=== PATIENT | male | born 1975 | race Asian ===

== ENCOUNTER 2020-01-25 14:18 | Emergency (ER) | payer OTHER ==
[~2020-01-25] VITALS: Ht 167.6 cm; Wt 84.0 kg
[2020-01-25] MEDS ORDERED: IV NORMAL SALINE 1,000ML 1,000 ML IV ONE (14:45)
[2020-01-25] MEDS ORDERED: CONTRAST GIVEN. MC PRN (15:00)
[2020-01-25] MEDS ORDERED: IOHEXOL 300 MG/ML 75 ML VIAL. IV ONE (15:00)
--- NOTE | 2020-01-25 15:09 | PHYS DOC ---
Past History Past Medical History: No Pertinent History (MORENO MO APRN) Past Surgical History: Other Additional Past Surgical Histo: left knee scope (MORENO MO APRN) Smoking: Non-smoker Alcohol Use: Rarely Drug Use: None (MORENO MO APRN) General Adult EDM: Chief Complaint: OTHER COMPLAINTS HPI: HPI: Patient is a 44-year-old male who presents to the emergency department with complaints of rectal pain and intermittent fevers for the last 4 days. Patient reports that he noticed the rectal pain after having a hard bowel movement 4 days ago. Patient denies any rectal bleeding. He states he is tried applying Preparation H with no reduction in his pain. Patient reports that this morning his temperature was 101. He denies any headache, sore throat, ear pain, chest pain, shortness of breath, cough, body aches, nausea, vomiting, diarrhea, or abdominal pain. The patient denies any pain with urination, abnormal penile discharge, or difficulty voiding. Patient reports that this morning he noticed that his urine was darker than normal. He currently rates his discomfort a 5 out of 10 on pain scale, he denies any alleviating factors, the pain is worse with defecation. Patient reports that he has not had a bowel movement yet today. (MORENO MO APRN) Review of Systems: Review of Systems: Complete ROS is negative unless otherwise noted in HPI. (MORENO MO APRN) Current Medications: Current Meds: Current Medications Medications (Trade) Dose Ordered Sig/Azalia Start Time Stop Time Status Last Admin Dose Admin Info (Do NOT chart on this entry -- for MONITORING) 1 each PRN DAILY PRN 01/25/20 15:00 01/27/20 14:59 Iohexol (Omnipaque 300 Mg/ml) 75 ml 1X ONCE 01/25/20 15:00 01/25/20 15:01 DC Sodium Chloride 1,000 ml @ 1,000 mls/hr 1X ONCE 01/25/20 14:45 01/25/20 15:44 (MORENO MO APRN) Allergies: Allergies: Allergies Coded Allergies Type Severity Reaction Last Updated Verified No Known Drug Allergies 01/25/20 No (MORENO MO APRN) Physical Exam: PE: See Above Constitutional: Well developed, well nourished, no acute distress, non-toxic appearance. [] HENT: Normocephalic, atraumatic, bilateral external ears normal, oropharynx moist, no oral exudates, nose normal. [] Eyes: PERRLA, EOMI, conjunctiva normal, no discharge. [] Neck: Normal range of motion, no stridor. [] Cardiovascular:Heart rate regular rhythm, no murmur [] Lungs & Thorax: Bilateral breath sounds clear to auscultation, respirations even and unlabored, no retractions, no respiratory distress [] Abdomen: Bowel sounds normal, soft, no tenderness, no masses, no pulsatile mass es. Rectal Exam: Normal tone, No mass, Positive control Stool: Firm, Brown Guaiac: Negative Skin: Warm, dry, no erythema, no rash. [] Back: No tenderness, no CVA tenderness. [] Extremities: No cyanosis, no clubbing, ROM intact, no edema. [] Neurologic: Alert and oriented X 3, normal motor function, normal sensory function, no focal deficits noted. [] Psychologic: Affect normal, judgement normal, mood normal. [] (MORENO MO APRN) Current Patient Data: Vital Signs: Vital Signs Date Time Temp Pulse Resp B/P (MAP) Pulse Ox O2 Delivery O2 Flow Rate FiO2 01/25/20 14:22 98.8 75 16 125/65 (85) 99 Room Air (MORENO MO APRN) EKG: EKG: [] (MORENO MO APRN) Radiology/Procedures: Radiology/Procedures: PROCEDURE: CT ABD PELV W/ IV CONTRST ONLY EXAM: Abdomen and pelvis CT with intravenous contrast. HISTORY: Rectal pain and fever. TECHNIQUE: Computed tomographic images of the abdomen and pelvis were obtained following the administration of intravenous contrast. Multiplanar reformatting was performed. *One or more of the following individualized dose reduction techniques were utilized for this examination: 1. Automated exposure control. 2. Adjustment of the mA and/or kV according to patient size. 3. Use of iterative reconstruction technique. COMPARISON: None. FINDINGS: Evaluation of the lower thorax is unremarkable. No hepatic lesion is seen. The gallbladder, pancreas, spleen, adrenal glands and left kidney are unremarkable. There are tiny hypodense lesions within both kidneys measuring 10 mm within the posterior lower mid zone of the right kidney and 3 mm within the inferior pole of the left kidney. These are likely cysts. There is no appendicitis. There is no bowel obstruction or abnormal bowel wall thickening. The urinary bladder and prostate are unremarkable. There is no lymphadenopathy. The aorta is normal in caliber. There is a complex peripherally enhancing fluid collection within the right perianal soft tissues measuring approximately 4.7 x 1.2 x 3.8 cm in maximum dimension, consistent with an abscess. This does not appear to extend cephalad beyond the levator ani. There is surrounding soft tissue fatty stranding involving the right gluteus subcutaneous fat. IMPRESSION: 1. Right perianal abscess measure approximately 4.7 x 3.8 x 1.2 cm. 2. Tiny suspected renal cysts. Follow-up is not routinely recommended for simple renal cysts.[] (MORENO MO APRN) Heart Score: Risk Factors: Risk Factors: DM, Current or recent (<one month) smoker, HTN, HLP, family history of CAD, obesity. Risk Scores: Score 0 - 3: 2.5% MACE over next 6 weeks - Discharge Home Score 4 - 6: 20.3% MACE over next 6 weeks - Admit for Clinical Observation Score 7 - 10: 72.7% MACE over next 6 weeks - Early Invasive Strategies (MORENO MO APRN) Course & Med Decision Making: Course & Med Decision Making Pertinent Labs and Imaging studies reviewed. (See chart for details) 1604- Spoke with Dr. Guido about CT results. will call the hospitalist at [facility] to admit patient there. Will start antibiotics and sitz baths as requested. Will notify pt that surgery will likely be tomorrow morning. 1635- Spoke with Dr. Grace at [facility], will transfer pt to [facility] for admission for perianal abscess. (MORENO MO APRN) Course & Med Decision Making I have participated in the care of this patient and I have reviewed and agree with all pertinent clinical information above including history, exam, and recommendations. (KINJAL KURTZ MD) Dragon Disclaimer: Dragon Disclaimer: This electronic medical record was generated, in whole or in part, using a voice recognition dictation system. (BOGUSLAW,MORENO D RING ATTACHER) Departure Departure: Impression: Primary Impression: Perianal abscess Disposition: 05 DC/TRF OTHER TYPE INSTITUTI ([facility], Dr. Grace) Condition: STABLE Referrals: SUJATHA FOURNIER (PCP) MORENO MO APRN Jan 25, 2020 15:09 KINJAL KURTZ MD Jan 25, 2020 17:07
[2020-01-25 15:13] LABS: FECAL OB PT NEGATIVE (NEG)
[2020-01-25 15:33] LABS: BASO % 0 % (0-3); EOS % 0 % (0-3); HEMATOCRIT 39.3 % (39.0-53.0); HEMOGLOBIN 13.1 g/dL (13.0-17.5); LYMPH # 1.3 x10^3/uL (1.0-4.8); LYMPH % 11 % (24-48); MEAN CORPUSCULAR HEMOGLOBIN 33 pg (25-35); MEAN CORPUSCULAR HGB CONC 33 g/dL (31-37); MEAN CORPUSCULAR VOLUME 98 fL (79-100); MONO # 1.5 x10^3/uL (0.0-1.1); MONO % 13 % (0-9); NEUT # 8.9 x10^3uL (1.8-7.7); NEUT % 76 % (31-73); PLATELET COUNT 230 x10^3/uL (140-400); RED BLOOD COUNT 3.99 x10^6/uL (4.30-5.70); RED CELL DISTRIBUTION WIDTH 12.1 % (11.5-14.5); WHITE BLOOD COUNT 11.6 x10^3/uL (4.0-11.0)
[2020-01-25 15:37] LABS: GFR 80.4; POTASSIUM 3.9 mmol/L (3.5-5.1)
[2020-01-25 15:43] LABS: ALBUMIN 3.7 g/dL (3.4-5.0); TOTAL BILIRUBIN 1.4 mg/dL (0.2-1.0); TOTAL PROTEIN 7.4 g/dL (6.4-8.2)
--- NOTE | 2020-01-25 15:46 | RAD ---
EXAM: Abdomen and pelvis CT with intravenous contrast. HISTORY: Rectal pain and fever. TECHNIQUE: Computed tomographic images of the abdomen and pelvis were obtained following the administration of intravenous contrast. Multiplanar reformatting was performed. *One or more of the following individualized dose reduction techniques were utilized for this examination: 1. Automated exposure control. 2. Adjustment of the mA and/or kV according to patient size. 3. Use of iterative reconstruction technique. COMPARISON: None. FINDINGS: Evaluation of the lower thorax is unremarkable. No hepatic lesion is seen. The gallbladder, pancreas, spleen, adrenal glands and left kidney are unremarkable. There are tiny hypodense lesions within both kidneys measuring 10 mm within the posterior lower mid zone of the right kidney and 3 mm within the inferior pole of the left kidney. These are likely cysts. There is no appendicitis. There is no bowel obstruction or abnormal bowel wall thickening. The urinary bladder and prostate are unremarkable. There is no lymphadenopathy. The aorta is normal in caliber. There is a complex peripherally enhancing fluid collection within the right perianal soft tissues measuring approximately 4.7 x 1.2 x 3.8 cm in maximum dimension, consistent with an abscess. This does not appear to extend cephalad beyond the levator ani. There is surrounding soft tissue fatty stranding involving the right gluteus subcutaneous fat. IMPRESSION: 1. Right perianal abscess measure approximately 4.7 x 3.8 x 1.2 cm. 2. Tiny suspected renal cysts. Follow-up is not routinely recommended for simple renal cysts. Electronically signed by: Isabel Lugo MD (01/25/2020 3:43 PM) [id number]
[2020-01-25] MEDS ORDERED: PIPERACILLIN/TAZOBACTAM 3.375 GM in IV NORMAL SALINE 50ML 50 ML IV ONE (16:15)
[2020-01-25 16:21] LABS: CLARITY,URINE CLEAR; COLOR,URINE AMBER
[2020-01-25 16:22] LABS: BILIRUBIN,URINE NEG (NEG); GLUCOSE,URINE NEG (NEG); UROBILINOGEN,URINE 0.2 mg/dL (0.2 mg/dL)
[2020-01-25 16:23] LABS: NITRITE,URINE NEG (NEG)
[2020-01-25 16:25] LABS: BACTERIA,URINE 0 /HPF (0-FEW); RBC,URINE 0 /HPF (0-2); SQUAMOUS EPITHELIAL CELL,UR OCC /LPF; WBC,URINE 0 /HPF (0-4)
[2020-01-25] MEDS ORDERED: IV NORMAL SALINE 50ML 50 ML ONE (16:30)
[2020-01-25] MEDS ORDERED: PIPERACILLIN/TAZOBACTAM 3.375 GM VIAL IV ONE (16:30)
[2020-01-25] MEDS ORDERED: MORPHINE SULFATE 4 MG/ML DISP.SYRIN. IV ONE (16:45)
[2020-01-25] MEDS ORDERED: ONDANSETRON PF 4 MG/2 ML VIAL. IVP ONE (16:45)
[2020-01-25 18:30] VITALS: BP 127/79
== END 2020-01-25 19:01 | disposition short-term general hospital (02) ==
LOC: ER 14:18
DX: K61.0 Anal abscess (principal)
CPT/HCPCS: 36415; 74177; 80053; 81001; 82274; 83605; 85025; 96361; 96365; 96375; 99285; J2270; J2405; J2543; J7030; Q9967